=== PATIENT | female | born 1970 | race Two or more races ===

== ENCOUNTER 2019-09-01 22:58 | Emergency (ER) | payer OTHER ==
[~2019-09-01] VITALS: Ht 149.9 cm; Wt 88.0 kg
[~2019-09-01 22:58] MED LIST: KETO10TA2 PO
[2019-09-02] MEDS ORDERED: LASIX20 MG PO (03:20)
== END 2019-09-02 03:32 ==
LOC: ER 22:58
DX: E03.8 Other specified hypothyroidism (principal); R60.0 Localized edema; R53.1 Weakness

== ENCOUNTER → 2021-02-06 | Emergency (ER) | payer OTHER ==
[~2021-02-06] VITALS: Ht 121.9 cm; Wt 83.9 kg
[~2021-02-06] MED LIST changes: +ALBUTEROL2.5 MG/3 M IH; +AMOXICILLIN875 MG PO; +LASIX20 MG PO; +LIPITOR20 MG PO; +PROVENTIL HFA6.7 GM IH; +SYMBICORT 16010.2 GM IH; +SYNTHROID88 MCG PO; +ZYNCOF 20-400120 ML PO
== END | disposition home or self-care (01) ==
LOC: ER 22:34
DX: J06.9 Acute upper respiratory infection, unspecified (principal); N39.0 Urinary tract infection, site not specified; B34.9 Viral infection, unspecified

== ENCOUNTER 2021-03-03 19:26 | Emergency (ER) | payer OTHER ==
[~2021-03-03] VITALS: Ht 149.9 cm; Wt 81.6 kg
[2021-03-03] MEDS ORDERED: MUCINEX DM ER1 EAC1 PO (22:59)
[2021-03-03] MEDS ORDERED: MEDROLPACK PO (22:59)
[2021-03-03] MEDS ORDERED: BUDESONIDE0.5 MG/2 M IH (22:59)
[2021-03-03] MEDS ORDERED: IPRAT-ALBUT 0.5-3 ML IH (22:59)
== END 2021-03-03 23:07 ==
LOC: ER 19:26
DX: U07.1 COVID-19 (principal); B34.9 Viral infection, unspecified; J06.9 Acute upper respiratory infection, unspecified

== ENCOUNTER → 2021-08-10 | Emergency (ER) | payer OTHER ==
[~2021-08-10] VITALS: Ht 152.4 cm; Wt 81.6 kg
[~2021-08-10] MED LIST changes: +BUDESONIDE0.5 MG/2 M IH; +IPRAT-ALBUT 0.5-3 ML IH; +MEDROLPACK PO; +MUCINEX DM ER1 EAC1 PO
== END | disposition home or self-care (01) ==
LOC: ER 04:12
DX: T16.2XXA Foreign body in left ear, initial encounter (principal); X58.XXXA Exposure to other specified factors, initial encounter; H93.8X2 Other specified disorders of left ear

== ENCOUNTER 2022-09-02 13:44 | Emergency (ER) | payer OTHER ==
[~2022-09-02] VITALS: Ht 152.4 cm; Wt 83.9 kg
[2022-09-02] MEDS ORDERED: LEVO-T125 MCG (14:34)
[2022-09-02] MEDS ORDERED: OSEL75CA PO (22:00)
== END 2022-09-02 22:11 | disposition home or self-care (01) ==
LOC: ER 13:44
DX: J10.1 Influenza due to other identified influenza virus with other respiratory manifestations (principal); R53.81 Other malaise; Z20.822 Contact with and (suspected) exposure to COVID-19